=== PATIENT | male | born 1970 | race Caucasian/White ===

== ENCOUNTER 2022-04-05 12:36 | Emergency (ER) | payer MEDICAID, SELFPAY ==
[2022-04-05 12:37] VITALS: BP 126/96; PULSE 86; RESP 16; TEMP 36.8; O2SAT 97; BMI 27.3
--- NOTE | 2022-04-05 13:13 | NURSING ---
SPOKE WITH CRISIS, FACE SHEET FAXED AT THIS TIME TO CRISIS FOR PT TO BE EVAULATED
--- NOTE | 2022-04-05 13:15 | RAD_ITS ---
STUDY: X-RAY CHEST REASON FOR EXAM: Male, 52 years old. [place] TECHNIQUE: Single AP portable view of the chest. COMPARISON: None. FINDINGS: The lungs are clear and expanded. There is no demonstrated pleural abnormality. Normal size heart. Normal mediastinum and nacho. Normal visualized pulmonary arteries. Normal visualized aortic arch and descending thoracic aorta. Mild degenerative changes of thoracic spine and both shoulders. There is no demonstrated abnormality of the visualized soft tissue structures of the upper abdomen. RAD/Chest 1 View (Portable) IMPRESSION: No active pulmonary disease. Electronically Signed: Jimi Stroud MD at 14:07 EDT ,
--- NOTE | 2022-04-05 13:15 | EX.ED.VIS.PS ---
HPI HPI - Psych History of Present Illness Chief Complaint: Suicidal Informant: patient Narrative Narrative: Patient is a 52-year-old male that denies any psychiatric history but 2 months ago did have an infected kidney stone presenting with generalized fatigue and feeling overwhelmed. Patient states he has been a single parent with sole custody of his 2 children who are now 12 and 14 for the past 10 years. He states he works constantly. He notes for the past 2 to 3 days he has been feeling hot flashes and having bad thoughts. He states they are constant. He does not specify what they are and states he would never do anything to harm himself. He states he just feels overwhelmed and cannot sleep because he cannot turn his mind off at night. He feels he is going to crawl out of his skin. Notes that over the past 2 years he has had 5 family members and he has been referred to counseling for bereavement but did not follow-up. About 2 months ago he had complicated kidney stones and had 3 procedures in a week for this. Patient states he had no notes to do so he came to the emergency room. Chart view shows that patient is on lorazepam and Adderall regularly through his PCP. [facility] Medical History Anxiety IBS (irritable bowel syndrome) Kidney stone Home Medications dextroamphetamine-amphetamine ER 20 mg 24hr capsule,extend release (Adderall XR) 20 mg PO DAILY 04/05/22 [History Last Taken Unknown] famotidine 20 mg tablet (Pepcid) 20 mg PO DAILY 04/05/22 [History Last Taken Unknown] gabapentin 800 mg tablet 800 mg PO 4X/DAY PRN Pain 04/05/22 [History Last Taken Unknown] lorazepam 1 mg tablet 1 mg PO BID PRN Anxiety 04/05/22 [History Last Taken Unknown] Allergy/AdvReac Type Severity Reaction Status Date / Time No Known Allergies Allergy Verified 04/05/22 12:39 Social History Smoking Status: Never smoker ROS ROS ED Constitutional Constitutional ED: Reports chills and sweats; Denies fever(s) Eyes Eyes: Denies change in vision or diplopia ENT ENT ED: Denies rhinorrhea or sore throat Cardiovascular Cardiovascular: Denies chest pain Respiratory/Chest Respiratory/Chest: Denies cough or dyspnea Gastrointestinal Gastrointestinal: Denies abdominal pain, nausea or vomiting Genitourinary Genitourinary ED: Denies dysuria or hematuria Musculoskeletal Musculoskeletal: Denies arthralgias or myalgias Integumentary Denies rash Neurologic Neurologic: Denies headache(s) or weakness Psychiatric Psychiatric: Reports anxiety and depression; Denies suicidal ideation or suicidal thoughts EXAM Physical Exam Const Vital Signs: 04/05/22 12:37 Temperature 98.2 F Temperature Source Temporal Pulse Rate 86 Respiratory Rate 16 Blood Pressure 126/96 H Blood Pressure Mean 106 Pulse Ox 97 Oxygen Delivery Method Room Air Positive well nourished and well developed General Appearance ED: well developed and NAD HEENT Reports moist mucous membranes normocephalic and atraumatic Eyes PERRL and EOMs intact bilaterally Neck supple Resp normal respiratory effort and clear to auscultation bilaterally Cardio no murmurs Rate: regular rate Rhythm: regular rhythm GI non-tender and non-distended Auscultation: normoactive bowel sounds Extremity normal to inspection General Extremety ED: Negative for edema or tenderness General Extremity: Negative for edema Neuro oriented x3 Motor Exam: muscle tone normal throughout; Negative for general weakness Psych mental status grossly normal, cooperative and speech normal Appearance: grossly normal Activity / Motor Behavior: avoids eye contact Speech: normal speech Mood & Affect: depressed and tearful Thought Process: normal thought process Thought Content: normal thought content, No suicidality, No homicidality, No delusion(s) and No hallucination(s) Attention / Concentration: attention grossly intact Memory / Cognition: memory grossly intact Insight: insight good Judgement: judgement good Skin Lesions: no lesions Rashes: no rashes MDM MDM MDM Narrative Medical decision making narrative: Patient evaluated for feeling tired and increased anxiety. He states he is having bad thoughts about not wanting to be alive anymore however he does not have a plan and states he would never do anything to harm himself. He has been feeling unwell for the past few days and also feels very overwhelmed and stressed especially as he is a single parent of a 12-year-old and a 14-year-old. He had kidney stones with subsequent infection couple months ago and has been concerned about his health. He does not have any family in the area however he states that he is very involved in his [employer] and does feel he has a good community where he lives. Patient appears insightful however I do think he is anxious and likely depressed. Do not think he is going to harm himself and he adamantly denies wanting to kill himself. He does not have a plan. Is has been feeling unwell for the past few days I did obtain a work-up looking for source of infection. He is found to have COVID. This likely is why he has been feeling hot and more rundown. Patient is informed of this findings. He is given IV fluids, Tylenol and ibuprofen in the emergency room. He is interested in outpatient counseling. He spoke with the counseling center and will be set up for IOP. I think this is very appropriate for the patient. He states that his children will not come back until 4 PM tomorrow so he will be able to rest until then. Patient is counseled importance of drinking fluids and resting. He verbalizes agreement understand this plan. He is contracted for safety. Does not appear to have any complications from COVID and does not have any hypoxia or signs of pneumonia on chest x-ray. Lab Data Attestation: I reviewed the patient's lab results. Labs: Laboratory Results - last 24 hr 04/05/22 04/05/22 04/05/22 13:34 13:34 13:34 WBC 4.1 L RBC 5.23 Hgb 16.6 H Hct 51.6 MCV 98.7 H MCH 31.7 MCHC 32.2 RDW Std Deviation 49.9 H RDW Coeff of Ania 13.4 Plt Count 139 L MPV 10.0 Immature Gran % (Auto) 0.200 Neut % (Auto) 33.5 L Lymph % (Auto) 52.1 H [place] % (Auto) 12.3 H Eos % (Auto) 1.2 Baso % (Auto) 0.7 Absolute Neuts (auto) 1.4 L Absolute Lymphs (auto) 2.11 Nucleated RBC % 0 Sodium 133 L Potassium 4.2 Chloride 109 H Carbon Dioxide 18.0 L Anion Gap 6 BUN 19 H Creatinine 1.09 Estim Creat Clear Calc 78.44 Est GFR (MDRD) Af Amer 92 Est GFR (MDRD) Non-Af 76 BUN/Creatinine Ratio 17.4 Glucose 110 H Calcium 9.2 Total Creatine Kinase 139 TSH 2.07 Urine Color Urine Clarity Urine pH Ur Specific [place] Urine Protein Urine Glucose (UA) Urine Ketones Urine Occult Blood Urine Nitrite Urine Bilirubin Urine Urobilinogen Ur Leukocyte Esterase Urine RBC Urine WBC Ur Squamous Epith Cells Urine Bacteria Urine Mucus Urine Opiates Screen Urine Methadone Screen Ur Barbiturates Screen Ur Phencyclidine Scrn Ur Amphetamines Screen MDMA (Ecstasy) Screen U Benzodiazepines Scrn Urine Cocaine Screen U Cannabinoids Screen Ur Drug Screen Comment Ethyl Alcohol < 3.0 04/05/22 04/05/22 13:34 13:34 WBC RBC Hgb Hct MCV MCH MCHC RDW Std Deviation RDW Coeff of Ania Plt Count MPV Immature Gran % (Auto) Neut % (Auto) Lymph % (Auto) [place] % (Auto) Eos % (Auto) Baso % (Auto) Absolute Neuts (auto) Absolute Lymphs (auto) Nucleated RBC % Sodium Potassium Chloride Carbon Dioxide Anion Gap BUN Creatinine Estim Creat Clear Calc Est GFR (MDRD) Af Amer Est GFR (MDRD) Non-Af BUN/Creatinine Ratio Glucose Calcium Total Creatine Kinase TSH Urine Color Yellow Urine Clarity Clear Urine pH 6.0 Ur Specific [place] 1.025 Urine Protein 30 H Urine Glucose (UA) Normal Urine Ketones 15 H Urine Occult Blood Negative Urine Nitrite Negative Urine Bilirubin Negative Urine Urobilinogen Normal Ur Leukocyte Esterase Negative Urine RBC 0 SEEN Urine WBC 0 SEEN Ur Squamous Epith Cells 0 SEEN Urine Bacteria 0 SEEN Urine Mucus 0 SEEN Urine Opiates Screen NEGATIVE Urine Methadone Screen NEGATIVE Ur Barbiturates Screen NEGATIVE Ur Phencyclidine Scrn NEGATIVE Ur Amphetamines Screen NEGATIVE MDMA (Ecstasy) Screen NEGATIVE U Benzodiazepines Scrn NEGATIVE Urine Cocaine Screen NEGATIVE U Cannabinoids Screen POSITIVE H Ur Drug Screen Comment Ethyl Alcohol Radiography Chest X-Ray - ED: 1 View, Read by ED Physician, Read by Radiologist, Normal and No Acute Disease Diagnostic Testing: Clinical Impression(s) from Imaging Studies Chest X-Ray 04/05/22 13:15 IMPRESSION: No active pulmonary disease. Electronically Signed: Jimi Stroud MD at 14:07 EDT , Rhythm Strip Rhythm Strip: Sinus Rhythm Rate: 77 Ectopy: None EKG Initial EKG: Attestation: I personally reviewed and interpreted this EKG as follows: Interpretation: Sinus Rhythm Comments: Normal sinus rhythm rate 77 Normal axis Normal intervals Normal ST segment Discharge Plan Triage Chief Complaint: Suicidal ED Provider: Radha Vidales Dx/Rx/DC Orders Clinical Impression: COVID-19, Situational depression, Anxiety Instructions: Coronavirus Disease 2019 (COVID-19): Caring for Yourself or Others, CONTRACT, No Harm, ED Depression Prescriptions: No Action famotidine [Pepcid] 20 mg Tablet 20 mg PO DAILY gabapentin 800 mg Tablet 800 mg PO 4X/DAY PRN (Reason: Pain) dextroamphetamine-amphetamine [Adderall XR] 20 mg Capsule,Extended Release 24hr 20 mg PO DAILY lorazepam 1 mg Tablet 1 mg PO BID PRN (Reason: Anxiety) Primary Care Provider: Darrion Diaz Referrals: Counseling,Center [GROUP OF PHYSICIANS] - Darrion Diaz MD [Primary Care Provider] - Disposition Disposition: Home, Self Care Discharge Date/Time: 04/05/22 17:12
[2022-04-05 13:48] LABS: Bacteria 0 SEEN /hpf (None Seen); Mucous, Urine 0 SEEN /hpf (<or=2+); Red Blood Cells-Urine 0 SEEN /hpf (0-5); Squamous Epithelial Cells - UA 0 SEEN /hpf (0-5); White Blood Cells 0 SEEN /hpf (0-5)
[2022-04-05 13:50] LABS: Absolute Lymphocyte Count 2.11 X10^3/uL (0.83-4.51); Absolute Neutrophil Count 1.4 X10^3/uL (2.0-7.7); Basophil# 0.03 X10^3/uL; Basophil% 0.7 % (0-1); Eosinophil# 0.05 X10^3/uL; Eosinophils% 1.2 % (0-5); Hematocrit 51.6 % (40-54); Hemoglobin 16.6 g/dL (13.0-16.5); Lymphocyte # 2.11 X10^3/ul (0.83-4.51); Lymphocyte % 52.1 % (19-41); Mean Corp Hgb Conc 32.2 g/dL (32-36); Mean Corpuscular Hgb 31.7 pg (27.0-32.0); Mean Corpuscular Volume 98.7 fL (80-94); Monocyte% 12.3 % (0-10); NRBC Flagged by Analyzer 0 % (0-5); Neutrophil # 1.35 X10^3/uL (2.7-7.7); Neutrophil % 33.5 % (47-70); Platelet Count 139 K/mm3 (150-450); RBC Distribution Width CV 13.4 % (11.6-14.6); RBC Distribution Width SD 49.9 fl (35.1-43.9); Red Blood Count 5.23 M/mm3 (4.6-6.2); White Blood Count 4.1 K/mm3 (4.4-11.0)
[2022-04-05 13:51] LABS: Color, Urine Yellow (Yellow); Glucose, Dipstick Normal (Normal); Ketone-Dipstick 15 mg/dl (Negative); Leukocyte Esterase-Dipstick Negative /ul (Negative); Nitrite-Dipstick Negative (Negative); Occult Blood-Urine Negative /ul (Negative); Protein-Dipstick 30 mg/dl (Negative); Specific Gravity, Urine 1.025 (1.002-1.030); Urine Bilirubin Dipstick Negative (Negative); Urine Clarity Clear (Clear); Urine Urobilinogen Normal (Normal)
[2022-04-05 14:13] LABS: Alcohol, Blood (Medical)-Serum < 3.0 mg/dL; Amphetamine Urine VISTA NEGATIVE (<1000 ng/mL); Anion Gap 6 (5-15); BUN 19 mg/dL (7-18); BUN/Creat Ratio 17.4 RATIO (10-20); Barbiturate Urine VISTA NEGATIVE (< 200 ng/mL); Benzodiazepine Urine VISTA NEGATIVE (< 200 ng/mL); CPK Total, Creatine Kinase 139 U/L (39-308); Calcium,Total 9.2 mg/dL (8.5-10.1); Chloride 109 mmol/L (98-107); Cocaine Urine VISTA NEGATIVE (< 300 ng/mL); Creatinine, Serum 1.09 mg/dL (0.70-1.30); EST Glomerular Filtration Rate 76 mL/min (>60); Ecstacy Urine VISTA NEGATIVE (< 500 ng/mL); Est Glom Filt Rate - Afr Amer 92 mL/min (>60); Estimated Creatinine Clearance 78.44 ml/min; Glucose 110 mg/dL (74-106); Methadone Urine VISTA NEGATIVE (< 300 ng/mL); PCP Urine VISTA NEGATIVE (< 25 ng/mL); Potassium 4.2 mmol/L (3.5-5.1); Sodium Level 133 mmol/L (136-145); THC Urine VISTA POSITIVE (< 50 ng/mL); Thyroid Stim Hormone (TSH) 2.07 uIU/mL (0.358-3.74); Vista UDS pH Range 6
[2022-04-05] MEDS: Ibuprofen 600 MG Tablet PO (14:30)
[2022-04-05] MEDS: Acetaminophen 500 MG Tablet PO (14:30)
[2022-04-05] MEDS: 0.9% Normal Saline 1,000 ML 999 ML IV (14:39)
--- NOTE | 2022-04-05 17:11 | ED.RN ---
support provided to patient at [facility]. patient reports going over safety plan over phone with crisis. pt appreciative of care, very pleasant.
== END 2022-04-05 17:12 | disposition home or self-care (01) ==
PROVIDERS: Emergency Provider Emergency Medicine; PCP Family Medicine; Visit Provider Emergency Medicine
DX: U07.1 COVID-19 (principal); F41.9 Anxiety disorder, unspecified; F32.A Depression, unspecified; Z63.4 Disappearance and death of family member; Z79.899 Other long term (current) drug therapy
CPT/HCPCS: 36415; 71045; 80048; 80307; 81001; 82077; 82550; 84443; 85025; 87811; 93005; 96360; 96361; 96374; 99284; J7030; A4216

== ENCOUNTER 2023-03-01 14:48 | Emergency (ER) | payer MEDICAID, SELFPAY ==
[2023-03-01 14:51] VITALS: BP 135/108; PULSE 73; RESP 11; TEMP 36.7; O2SAT 97; BMI 28.3
--- NOTE | 2023-03-01 15:03 | EKG12_ITS ---
Test Reason : CP/DIZZINESS Blood Pressure : / mmHG Vent. Rate : 067 BPM Atrial Rate : 067 BPM P-R Int : 134 ms QRS Dur : 078 ms QT Int : 382 ms P-R-T Axes : 049 -14 017 degrees QTc Int : 403 ms Normal sinus rhythm with sinus arrhythmia Normal ECG Confirmed by DARLENE COTTON, LINDA ([id number]), primer expeditor and drier LAURENT EASLEY ([id number]) on 03/02/2023 11:45:56 AM Referred By: JORJE Confirmed By:LINDA COLON MD
--- NOTE | 2023-03-01 15:03 | CT_ITS ---
STUDY: CT BRAIN WITHOUT CONTRAST REASON FOR EXAM: Male, 52 years old. severe headaches past 2 weeks RADIATION DOSAGE (If Supplied By Facility): CTDIvol = ( 44.99 ) mGy, DLP = ( 796.11 ) mGycm TECHNIQUE: Transaxial CT imaging of the brain was performed without administration of intravenous contrast material. Individualized dose optimization techniques were used for this CT. COMPARISON: No relevant priors. FINDINGS: Normal soft tissue structures. Normal calvarium. Normal size ventricles and extra-axial spaces for the patient''s age. Normal white matter tracts of the cerebral hemispheres. Normal basal ganglia and thalami. Normal brainstem. Normal cerebellum. There is no intracranial hemorrhage. There are no findings of an acute ischemic infarction. Normal visualized paranasal sinuses. CT/Brain/Head without Contrast IMPRESSION: Normal unenhanced CT scan of the brain. Electronically Signed: Rick Santacruz MD at 15:35 EDT ,
--- NOTE | 2023-03-01 15:05 | EX.ED.DYSGE1 ---
HPI History of Present Illness Chief Complaint: Dizziness Detail of Chief Complaint: Dizziness, which patient points as lightheadedness and other symptoms Informant: patient Onset/Context/Timing Onset: Weeks (2 weeks of headache), Month(s) (With respect to dizziness) and - (Also complains of chest pain which she has been told is due to anxiety) Context: - (Varies) Timing: Intermittent (With respect to his complaint of dizziness) Quality: Orthostatic lightheadedness Location: Not applicable Current Severity: Severe (With respect to the headache) Maximum Severity: Severe Worsened by: Photophobia and sonophobia Relieved by: Nothing Associated Symptoms Associated Symptoms: Nausea, chest pain, Narrative Narrative: Patient is a 52-year-old male who has had dizziness since renal surgery approximately 1 year ago. He was in septic shock due to obstructing stone and care for it at [facility]. He has been working with his doctor for approximately a year to determine the etiology of his dizziness, which she defines as lightheadedness. He denies blurred vision, change in vision or diplopia. He denies trouble with speech or swallowing. He states over the past 2 weeks he has a bilateral headache that is worsened by sound or light. He does endorse nausea without vomiting. He does endorse diarrhea due to his irritable bowel syndrome. He denies mucus or blood in his stool. He denies urologic symptoms. He was unaware that he had a rash. He believes it is due to his hair being shaved for the EKG. He has not been prescribed any new medicine. There is no change in detergent linen etc. Prior similar symptoms: Yes Recent Illness/Hospitalization: No [facility] Medical History (Updated 03/01/23 @ 16:[address] Thai Cummings MD) Anxiety IBS (irritable bowel syndrome) Kidney stone Home Medications dextroamphetamine-amphetamine ER 20 mg 24hr capsule,extend release (Adderall XR) 20 mg PO DAILY 04/05/22 [History Last Taken Unknown] famotidine 20 mg tablet (Pepcid) 20 mg PO DAILY 04/05/22 [History Last Taken Unknown] gabapentin 800 mg tablet 800 mg PO 4X/DAY PRN Pain 04/05/22 [History Last Taken Unknown] lorazepam 1 mg tablet 1 mg PO BID PRN Anxiety 04/05/22 [History Last Taken Unknown] Allergy/AdvReac Type Severity Reaction Status Date / Time No Known Allergies Allergy Verified 04/05/22 12:39 Surgical History (Updated 03/01/23 @ 16:[address] Thai Cummings MD) S/P colon polypectomy Social History (Updated 03/01/23 @ 15:[address] Thai Cummings MD) household members: none Smoking Status: Former smoker substance use type: does not use ROS ROS ED Constitutional Constitutional ED: Denies chills, fever(s), subjective, sweats or weight loss Eyes Eyes: Denies blurry vision, change in vision or diplopia ENT ENT ED: Denies ear pain, rhinorrhea or sore throat Cardiovascular Cardiovascular: Reports chest pain; Denies orthopnea, palpitations, paroxysmal nocturnal dyspnea or racing heartbeat Respiratory/Chest Respiratory/Chest: Denies cough, dyspnea, dyspnea on exertion, orthopnea or paroxysmal nocturnal dyspnea Gastrointestinal Gastrointestinal: Reports abdominal pain, constipation, diarrhea and nausea; Denies melena or vomiting Genitourinary Genitourinary ED: Denies dysuria, hematuria or urinary frequency Musculoskeletal Musculoskeletal: Denies arthralgias, back pain, myalgias or neck pain Integumentary Denies abscess, Abrasions or rash Neurologic Neurologic: Reports headache(s); Denies paresthesias or weakness Psychiatric Psychiatric: Reports anxiety Endocrine Endocrinology: Denies cold intolerance or heat intolerance Hematologic/Lymphatic Hematologic/Lymphatic: Reports systems reviewed and no addt'l complaints, except as documented EXAM Physical Exam Const Vital Signs: 03/01/23 14:51 03/01/23 15:29 03/01/23 15:39 Temperature 98.1 F Temperature Source Oral Pulse Rate 73 Pulse Rate [Lying] 57 L Pulse Rate [Sitting (for 1 minute prior to obtaining)] 63 Respiratory Rate 11 L Respiratory Effort Normal Non-Labored Blood Pressure 135/108 H Blood Pressure [Lying] 125/93 H Blood Pressure [Sitting (for 1 minute prior to obtaining)] 130/91 H Blood Pressure [Standing (for 1 minute prior to obtaining)] 131/98 H Blood Pressure Mean 117 Blood Pressure Mean [Lying] 103 Blood Pressure Mean [Sitting (for 1 minute prior to obtaining)] 104 Blood Pressure Mean [Standing (for 1 minute prior to obtaining)] 109 Pulse Ox 97 Oxygen Delivery Method Room Air Positive well nourished and well developed General Appearance ED: well developed and NAD; Negative for cyanotic, diaphoretic or pallor HEENT Reports moist mucous membranes HEENT Narrative: Head is atraumatic normocephalic. Ears normal. TMs normal. Nares patent. Posterior pharynx out erythema or exudate. Uvula midline. No deviation tongue with protrusion. Eyes PERRL and EOMs intact bilaterally Eyes Narrative: There is no nystagmus. General Eye ED: Negative for pale conjunctiva or scleral icterus Neck no lymphadenopathy, supple and no JVD General: Negative for tenderness or other Chest Wall palpation of chest normal; Negative for inspection of chest normal Chest Narrative: Patient has a blanching confluent erythematous rash that is not raised. This was also noted on his upper extremities. Resp normal respiratory effort and clear to auscultation bilaterally Effort and Inspection: Negative for pain with movement Auscultation: Negative for rales, rhonchi, wheezes or diminished lung sounds Cardio regular rate, regular rhythm, S1 normal heart sound, S2 normal heart sound and no murmurs GI normal to inspection, nondistended, normoactive bowel sounds, non-tender, non-distended and no masses; Negative for hepatosplenomegaly Auscultation: normoactive bowel sounds Palpation: soft Back/Spine no CVA tenderness Extremity normal to inspection General Extremety ED: Negative for edema or tenderness General Extremity: Negative for edema Neuro oriented x3, CN's II-XII intact bilaterally and no sensory deficits noted Sensorium / Orientation: alert Motor Exam: strength 5/5 throughout Psych Attitude: agitated Skin no rashes or lesions noted, no wounds and skin turgor normal General Skin Exam: elasticity normal; Negative for jaundice or pallor MDM MDM MDM Narrative Medical decision making narrative: She presents with numerous symptoms. Since patient presents with orthostatic-like symptoms orthostatic vital signs were obtained. Suspect this chest pain is related to anxiety. EKG was obtained per nurse protocol. CBC was obtained to assess H&H and white count. Basic metabolic panel to assess renal function and electrolytes. CT of the head because of his complaint of severe headache. He has no history of migraine headaches nor does he have family history of subarachnoid hemorrhage. UA was not obtained since he has no urologic symptoms. Lab Data Attestation: I reviewed the patient's lab results. Lab results narrative: CBC is unremarkable. Basic metabolic panel is unremarkable. Labs: Laboratory Results - last 24 hr 03/01/23 14:55 WBC 7.0 RBC 4.79 Hgb 15.6 Hct 44.9 MCV 93.7 MCH 32.6 H MCHC 34.7 RDW Std Deviation 42.9 RDW Coeff of Ania 12.4 Plt Count 220 MPV 10.3 Immature Gran % (Auto) 0.300 Neut % (Auto) 47.1 Lymph % (Auto) 44.8 H [place] % (Auto) 6.1 Eos % (Auto) 1.0 Baso % (Auto) 0.7 Absolute Neuts (auto) 3.3 Absolute Lymphs (auto) 3.14 Nucleated RBC % 0 Sodium 139 Potassium 3.6 Chloride 110 H Carbon Dioxide 23.0 Anion Gap 6 BUN 17 Creatinine 1.12 Estim Creat Clear Calc 73.77 Est GFR (MDRD) Af Amer 89 Est GFR (MDRD) Non-Af 74 BUN/Creatinine Ratio 15.2 Glucose 107 H Calcium 10.0 Radiography Diagnostic Testing: Clinical Impression(s) from Imaging Studies Brain CT 03/01/23 15:03 IMPRESSION: Normal unenhanced CT scan of the brain. Electronically Signed: Rick Santacruz MD at 15:35 EDT , EKG Initial EKG: Attestation: I personally reviewed and interpreted this EKG as follows: Interpretation: Sinus Rhythm Comments: Rate is 67. The EKG is normal. UT interval is 134 ms. Cures duration 78 ms. QT duration 382 ms. [place] is normal. Treatment and Re-Evaluation :: CAT scan reviewed by me interpreted by radiologist as negative. Since he is complaining of photophobia and sonophobia we will treat with IV cuter relic, Reglan and diphenhydramine and reassess. Patient was reassessed at 1620. His headache is essentially resolved. Patient was discharged to home. Instructed follow-up with his primary care physician. Discharge Plan Triage Chief Complaint: Dizziness ED Provider: Thai Cummings Dx/Rx/DC Orders Clinical Impression: Intractable chronic migraine without aura and with status migrainosus, Erythematous rash, Blood pressure elevated without history of HTN, Orthostatic dizziness Instructions: ED Hypertension, To Be Confirmed, ED, Migraine (Classical) Prescriptions: No Action famotidine [Pepcid] 20 mg Tablet 20 mg PO DAILY gabapentin 800 mg Tablet 800 mg PO 4X/DAY PRN (Reason: Pain) dextroamphetamine-amphetamine [Adderall XR] 20 mg Capsule,Extended Release 24hr 20 mg PO DAILY lorazepam 1 mg Tablet 1 mg PO BID PRN (Reason: Anxiety) Primary Care Provider: Darrion Diaz Referrals: Darrion Diaz MD [Primary Care Provider] - 1 Week Disposition Disposition: Home, Self Care
[2023-03-01 15:32] LABS: Absolute Lymphocyte Count 3.14 X10^3/uL (0.83-4.51); Absolute Neutrophil Count 3.3 X10^3/uL (2.0-7.7); Basophil# 0.05 X10^3/uL; Basophil% 0.7 % (0-1); Eosinophil# 0.07 X10^3/uL; Hematocrit 44.9 % (40-54); Hemoglobin 15.6 g/dL (13.0-16.5); Lymphocyte # 3.14 X10^3/ul (0.83-4.51); Lymphocyte % 44.8 % (19-41); Mean Corp Hgb Conc 34.7 g/dL (32-36); Mean Corpuscular Hgb 32.6 pg (27.0-32.0); Mean Corpuscular Volume 93.7 fL (80-94); Mean Platelet Vol. 10.3 fl (6.2-12.0); Monocyte# 0.43 X10^3/uL; Monocyte% 6.1 % (0-10); NRBC Flagged by Analyzer 0 % (0-5); Neutrophil % 47.1 % (47-70); Platelet Count 220 K/mm3 (150-450); RBC Distribution Width CV 12.4 % (11.6-14.6); RBC Distribution Width SD 42.9 fl (35.1-43.9); Red Blood Count 4.79 M/mm3 (4.6-6.2)
[2023-03-01 15:36] LABS: Anion Gap 6 (5-15); BUN 17 mg/dL (7-18); BUN/Creat Ratio 15.2 RATIO (10-20); Chloride 110 mmol/L (98-107); Creatinine, Serum 1.12 mg/dL (0.70-1.30); EST Glomerular Filtration Rate 74 mL/min (>60); Est Glom Filt Rate - Afr Amer 89 mL/min (>60); Estimated Creatinine Clearance 73.77 ml/min; Glucose 107 mg/dL (74-106); Potassium 3.6 mmol/L (3.5-5.1); Sodium Level 139 mmol/L (136-145)
[2023-03-01 15:39] VITALS: BP 125/93; BP 130/91; BP 131/98; PULSE 57; PULSE 63
[2023-03-01] MEDS: DiphenhydrAMINE 50 MG/ML Syringe 25 MG IV (15:43)
[2023-03-01] MEDS: Ketorolac 15 MG/ML Vial IV (15:43)
[2023-03-01] MEDS: Metoclopramide 10 MG/2 ML Vial IV (15:43)
--- NOTE | 2023-03-01 17:10 | ED.RN ---
THIS RN INFORMED BY D/C RN SAHIL THAT PT WAS NO LONGER IN ROOM WHEN SHE WENT TO D/C HIM. MULTIPLE ATTEMPTS WERE MADE TO CALL PATIENT. CALLS EVENTUALLY WENT TO VOICEMAIL. RENETTA CASTELLON AND HEAD OF SECURITY [employer] INFORMED OF SITUATION DUE TO BEING UNABLE TO CONFIRM IF PT TOOK HIS OWN IV OUT PRIOR TO D/C. THEY ARE CURRENTLY REVIEWING SEC[employer]ITY [employer]
--- NOTE | 2023-03-01 17:22 | ED.RN ---
PT WAS VISUALIZED LEAVING DEPARTMENT WITH NO DISTRESS WITHOUT AN IV IN RIGHT AC.
== END 2023-03-01 17:23 | disposition home or self-care (01) ==
PROVIDERS: Emergency Provider Emergency Medicine; PCP Family Medicine; Visit Provider Emergency Medicine
DX: G43.711 Chronic migraine without aura, intractable, with status migrainosus (principal); F41.9 Anxiety disorder, unspecified; K58.0 Irritable bowel syndrome with diarrhea; Z87.891 Personal history of nicotine dependence; R21 Rash and other nonspecific skin eruption; R07.9 Chest pain, unspecified; R03.0 Elevated blood-pressure reading, without diagnosis of hypertension; R42 Dizziness and giddiness
CPT/HCPCS: 70450; 80048; 85025; 93005; 96374; 96375; 99285; A4216